=== PATIENT | male | born 1960 | race Caucasian/White ===

== ENCOUNTER 2022-09-10 13:44 | Outpatient (REF) | payer MEDICAID, SELFPAY ==
[2022-09-10 15:12] LABS: HCT 42.2 % (40.0-50.0); HGB 13.9 g/dL (13.5-17.5); MCH 28.9 pg (27.0-33.0); MCHC 32.9 % (32.0-36.0); MCV 88 fL (80-95); Platelet Count 182 10^3/uL (130-400); RBC 4.81 10^6/uL (4.36-5.78); RDW 14.6 % (11.8-14.1); RDW-SD 47.2 fL; WBC 6.61 10^3/uL (4.4-10.8)
[2022-09-10 15:23] LABS: ALT 22 U/L (16-63); AST 20 U/L (15-37); Albumin 4.1 g/dL (3.4-5.0); Alkaline Phosphatase 83 U/L (46-116); Anion Gap 9.3 mmol/L (3-11); BUN 10 mg/dL (7-18); Bilirubin, Total 0.4 mg/dL (0.2-1.0); CO2 21.7 mmol/L (21.0-32.0); CREATININE 1.2 mg/dL (0.70-1.30); Calcium 8.9 mg/dL (8.5-10.1); Calculated LDL 159 mg/dL (<100); Chloride 111 mmol/L (98-107); Cholesterol 218 mg/dL (<200); Estimated GFR 69.23 (mL/min/1.73m2); Glucose 96 mg/dL (74-106); HDL Cholesterol 41 mg/dL (40-60); Potassium 4.1 mmol/L (3.5-5.1); Sodium 142 mmol/L (136-145); Total Protein 7.3 g/dL (6.4-8.2); Triglyceride 92 mg/dL (<150)
== END 2022-09-10 13:45 | disposition home or self-care (01) ==
LOC: NCHCN 13:44
PROVIDERS: PCP Internal Medicine; Visit Provider Nurse Practitioner Family
DX: Z51.81 Encounter for therapeutic drug level monitoring (principal)
CPT/HCPCS: 80053; 80061; 85027

== ENCOUNTER 2023-08-19 14:02 | Outpatient (REF) | payer MEDICAID, SELFPAY ==
[2023-08-19 16:47] LABS: Anion Gap 10.2 mmol/L (3-11); BUN 8 mg/dL (7-18); CO2 24.8 mmol/L (21.0-32.0); CREATININE 1.3 mg/dL (0.70-1.30); Calcium 9.5 mg/dL (8.5-10.1); Calculated LDL 84 mg/dL (<100); Chloride 109 mmol/L (98-107); Cholesterol 161 mg/dL (<200); Glucose 76 mg/dL (74-106); HDL Cholesterol 41 mg/dL (40-60); Potassium 3.7 mmol/L (3.5-5.1); Sodium 144 mmol/L (136-145); Triglyceride 180 mg/dL (<150)
== END 2023-08-19 14:03 | disposition home or self-care (01) ==
LOC: NCHCN 14:02
PROVIDERS: PCP Internal Medicine; Visit Provider Nurse Practitioner Family
DX: G40.909 Epilepsy, unspecified, not intractable, without status epilepticus (principal); E78.5 Hyperlipidemia, unspecified; Z12.11 Encounter for screening for malignant neoplasm of colon; Z71.6 Tobacco abuse counseling
CPT/HCPCS: 80048; 80061

== ENCOUNTER 2024-08-11 14:49 | Outpatient (REF) | payer MEDICAID, SELFPAY ==
[2024-08-11 21:29] LABS: HCT 43.3 % (40.0-50.0); HGB 14.3 g/dL (13.5-17.5); MCH 29.5 pg (27.0-33.0); MCV 89 fL (80-95); MPV 12.5 fL (8.0-11.0); Platelet Count 188 10^3/uL (130-400); RBC 4.85 10^6/uL (4.36-5.78); RDW 14.8 % (11.8-14.1); RDW-SD 48.2 fL; WBC 7.46 10^3/uL (4.4-10.8)
[2024-08-11 22:07] LABS: ALT 29 U/L (16-63); AST 25 U/L (15-37); Albumin 4.1 g/dL (3.4-5.0); Alkaline Phosphatase 96 U/L (46-116); Anion Gap 12.3 mmol/L (3-11); BUN 13 mg/dL (7-18); Bilirubin, Total 0.26 mg/dL (0.2-1.0); CO2 22.7 mmol/L (21.0-32.0); CREATININE 1.2 mg/dL (0.70-1.30); Calculated LDL 89 mg/dL (<100); Chloride 112 mmol/L (98-107); Cholesterol 151 mg/dL (<200); Estimated GFR 68.38 (mL/min/1.73m2); Glucose 83 mg/dL (74-106); HDL Cholesterol 41 mg/dL (40-60); Potassium 3.9 mmol/L (3.5-5.1); Sodium 147 mmol/L (136-145); TSH 1.73 uIU/Ml (0.36-3.74); Total Protein 7.6 g/dL (6.4-8.2); Triglyceride 107 mg/dL (<150); Vitamin B12 600 pg/mL (193-986); Vitamin D 25 Total 27.6 ng/mL (30-100)
== END 2024-08-11 14:50 | disposition home or self-care (01) ==
LOC: NCHCN 14:49
PROVIDERS: PCP Internal Medicine; Visit Provider Nurse Practitioner Family
DX: E78.5 Hyperlipidemia, unspecified (principal); R53.83 Other fatigue; R00.1 Bradycardia, unspecified; Z51.81 Encounter for therapeutic drug level monitoring
CPT/HCPCS: 80053; 80061; 82306; 85027; 82607; 84443

== ENCOUNTER 2025-02-24 18:48 | Outpatient (REF) | payer MEDICAID, SELFPAY ==
[2025-02-24 22:20] LABS: Anion Gap 9.6 mmol/L (3-11); BUN 15 mg/dL (7-18); CO2 24.4 mmol/L (21.0-32.0); CREATININE 1.3 mg/dL (0.70-1.30); Calcium 9.3 mg/dL (8.5-10.1); Chloride 111 mmol/L (98-107); Estimated GFR 61.73 (mL/min/1.73m2); Glucose 100 mg/dL (74-106); Potassium 4.2 mmol/L (3.5-5.1); Sodium 145 mmol/L (136-145)
== END 2025-02-24 18:49 | disposition home or self-care (01) ==
LOC: NCHCN 18:48
PROVIDERS: PCP Internal Medicine; Visit Provider Nurse Practitioner Family
DX: E87.0 Hyperosmolality and hypernatremia (principal)
CPT/HCPCS: 80048